=== PATIENT | male | born 1970 | race Caucasian/White ===

== ENCOUNTER 2021-04-01 07:38 | Day surgery (SDC) | payer MEDICAID ==
[2021-03-24 13:02] LABS: BASOPHILS % (AUTO) 0.5 % (0-1); EOSINOPHILS # (AUTO) 0.1 X10'3 (0-0.9); EOSINOPHILS % (AUTO) 2.1 % (0-6); LYMPHOCYTES # (AUTO) 2.3 X10'3 (1.1-4.8); LYMPHOCYTES % (AUTO) 34.2 % (21-51); MEAN CORPUSCULAR HEMOGLOBIN 31.2 PG (27.0-31.0); MEAN CORPUSCULAR HGB CONC 33.9 g/dL (33.0-36.5); MEAN PLATELET VOLUME 9.2 FL (7.4-10.4); MONOCYTES # (AUTO) 0.9 X10'3 (0-0.9); MONOCYTES % (AUTO) 12.8 % (2-12); NEUTROPHILS # (AUTO) 3.4 X10'3 (1.8-7.7); NEUTROPHILS % (AUTO) 50.4 % (42-75); PRE OP HEMATOCRIT 42.4 % (42.0-52.0); PRE OP HEMOGLOBIN 14.4 g/dL (14.0-17.9); PRE OP PLATELET COUNT 182 X10'3 (140-440); RED CELL DISTRIBUTION WIDTH 13.2 % (11.5-14.5)
[2021-03-24 13:16] LABS: ALBUMIN 4.1 G/DL (3.4-5.0); ALBUMIN/GLOBULIN RATIO 1.1 (1.1-1.5); ALKALINE PHOSPHATASE 52 IU/L (46-116); BLOOD UREA NITROGEN 17 MG/DL (7-18); BUN/CREATININE RATIO 22.1 (5.4-32.0); CALCIUM 8.5 MG/DL (8.5-10.1); CHLORIDE 103 MMOL/L (99-107); CREATININE 0.77 MG/DL (0.60-1.10); PRE OP ALT 23 U/L (30-65); PRE OP ANION GAP 6 (8-16); PRE OP AST 16 U/L (10-37); PRE OP BILIRUB, TOTAL 0.5 MG/DL (0.0-1.0); PRE OP GLUCOSE 99 MG/DL (70-104); PRE OP POTASSIUM 4.3 MMOL/L (3.4-5.1); PRE OP SODIUM 139 MMOL/L (135-145); TOTAL PROTEIN 7.9 G/DL (6.4-8.2); eGFR > 90 ML/MIN
[~2021-04-01] VITALS: Ht 185.4 cm; Wt 95.2 kg
[~2021-04-01 07:38] MED LIST: CLON-373 PO; DOCUMENT DATE & TIME OF BETA-BLOCKER PO ONE; LEVE750T PO; PROP20TA6 PO; albuterol 2.5 MG/3 ML nebule NEB PRN; cefazolin/dext.iso 2gm/100ml IV ONE; famotidine 20mg tablet PO ONE; ringers solution, lacted 1,000 ML IV SCH; vancomycin 1,500 MG in NS 300ml IV soln IV ONE
[2021-04-01 07:50] VITALS: BP 119/78
[2021-04-01] MEDS ORDERED: labetalol 20mg/4ml (5mg/ml) syringe IV PRN (08:25)
[2021-04-01] MEDS ORDERED: morphine 4 MG/ML inj SYRINge IV PRN (08:25)
[2021-04-01] MEDS ORDERED: morphine 2 MG/ML inj. syringe IV PRN (08:25)
[2021-04-01] MEDS ORDERED: hydrALAZINE 20mg/ml inj. IV PRN (08:25)
[2021-04-01] MEDS ORDERED: ringers solution, lacted 1,000 ML IV SCH (08:25)
[2021-04-01] MEDS ORDERED: fentaNYL/PF 50MCG/1 ML 2ML syringe IV PRN ×2 (08:25)
[2021-04-01] MEDS ORDERED: ondansetron/PF 4mg/2ml inj IV PRN (08:25)
[2021-04-01] MEDS ORDERED: triamcinolone acetonide 40mg/ml inj ONE (10:29)
[2021-04-01] MEDS ORDERED: BUPIVAcaine/PF 2.5 mg/ml (0.25%) 30ml vial ONE (10:29)
[2021-04-01] MEDS ORDERED: sevoflurane 250ml liquid IH ONE (11:13)
[2021-04-01] MEDS ORDERED: dexamethasone sod phosphate 4mg/ml inj. ONE (11:13)
[2021-04-01] MEDS ORDERED: MIDAZolam 1 MG/ML 5ML VIAL ONE (11:14)
[2021-04-01] MEDS ORDERED: fentaNYL /PF 50mcg/ml 5ml ampule ONE (11:15)
[2021-04-01] MEDS ORDERED: atropine 0.4 mg/ml 20ml vial ONE (11:25)
[2021-04-01] MEDS ORDERED: ondansetron/PF 4mg/2ml inj ONE (12:07)
[2021-04-01] MEDS ORDERED: propofol inj 20 ML IV ONE (12:07)
[2021-04-01] MEDS ORDERED: LIDOcaine 2% (20mg/ml) 5ml vial ONE (12:07)
[2021-04-01 12:30] VITALS: BP 156/78
--- NOTE | 2021-04-01 12:30 | NUR ---
Received from OR via , accompanied by Anesthesiologist and report given by Anesthesiolgist. PATIENT A&OX4, DENIES PAIN, V/S WNL, CSM INTACT, DRESSING TO RIGHT KNEE CDI, SCD ON, 20G RAGHAV
[2021-04-01 12:40] VITALS: BP 161/79
[2021-04-01 12:50] VITALS: BP 126/92
[2021-04-01 13:00] VITALS: BP 141/76
[2021-04-01 13:10] VITALS: BP 132/84
--- NOTE | 2021-04-01 13:10 | NUR ---
PATIENT A&OX4, DENIES PAIN, V/S WNL, CSM INTACT, DRESSING TO RIGHT KNEE CDI, SCD OFF, 20G LUE D/C. PATIENT VERBALIZED UNDERSTANDING OF D/C INSTRUCTIONS. PATIENT D/C HOME WITH ALL BELONGINGS AND CAREGIVER GAVE TRANSPORT.
== END 2021-04-01 13:10 | disposition home or self-care (01) ==
LOC: PAS 07:38
PROVIDERS: ATTEND Orthopaedic Surgery
DX: S83.231A Complex tear of medial meniscus, current injury, right knee, initial encounter (principal); S83.271A Complex tear of lateral meniscus, current injury, right knee, initial encounter; F31.81 Bipolar II disorder; B18.2 Chronic viral hepatitis C; E66.8 Other obesity; Z68.28 Body mass index [BMI] 28.0-28.9, adult; M17.0 Bilateral primary osteoarthritis of knee; G40.909 Epilepsy, unspecified, not intractable, without status epilepticus; F43.10 Post-traumatic stress disorder, unspecified; F41.9 Anxiety disorder, unspecified; F17.210 Nicotine dependence, cigarettes, uncomplicated; Z79.899 Other long term (current) drug therapy; Z98.890 Other specified postprocedural states; Z86.14 Personal history of Methicillin resistant Staphylococcus aureus infection; Z20.822 Contact with and (suspected) exposure to COVID-19; X58.XXXA Exposure to other specified factors, initial encounter; Y93.89 Activity, other specified; Y92.89 Other specified places as the place of occurrence of the external cause; Y99.8 Other external cause status
CPT/HCPCS: 29873; 29879; 29880; 36415; 80053; 82948; 85025; 93005; J0461; J1100; J2001; J2250; J2405; J2704; J3010; J3301; J3370; J3490; J7040; U0003; U0005; Z7506; Z7508; Z7512; A4215; A4618; A6250; A6449; A7000; J7120